=== PATIENT | male | born 1980 | race Caucasian/White ===

== ENCOUNTER 2020-05-26 07:37 | Emergency (ER) | payer BC, OTHER, SELFPAY ==
[2020-05-26 07:38] VITALS: BP 150/100; PULSE 88; RESP 17; TEMP 36.2; O2SAT 97; BMI 22.8
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
[2020-05-26] MEDS: HYDROcodone Bitartrate/Apap 5/325 Tablet PO (07:51)
== END 2020-05-26 09:23 | disposition home or self-care (01) ==
LOC: ED 08:32
PROVIDERS: Emergency Provider Emergency Medicine
DX: S83.519A Sprain of anterior cruciate ligament of unspecified knee, initial encounter (principal); S83.511A Sprain of anterior cruciate ligament of right knee, initial encounter; X50.1XXA Overexertion from prolonged static or awkward postures, initial encounter; Y93.89 Activity, other specified; Y92.89 Other specified places as the place of occurrence of the external cause; Y99.9 Unspecified external cause status
CPT/HCPCS: 73564; 99281

== ENCOUNTER → 2020-06-07 10:07 | Outpatient (CLI) | payer BC, OTHER, SELFPAY ==
[2020-05-26 07:38] VITALS: BMI 22.8
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
--- NOTE | 2020-06-07 10:45 | MRI_ITS ---
STUDY: MRI RIGHT KNEE REASON FOR EXAM: Male, 40 years old. Right knee pain. Injury. Nondisplaced proximal tibial fracture. TECHNIQUE: Standardized fat and water weighted pulse sequences were obtained in all 3 orthogonal planes. COMPARISON: X-ray dated May 26, 2020.. FINDINGS: Patient motion. Metallic susceptibility artifact (related to tibial aurelio) overlies the anterior medial soft tissues with obscuration of the portion of the proximal tibia. Subtle nondisplaced tibial eminence fracture (coronal image 20 series 9 and coronal image 12 series 8) with minimal extension into the medial tibial plateau. No acute fracture or depression. No acute fracture displacement. No acute bone destruction. Medial compartment grade 2/3 cartilage loss. Lateral compartment articular cartilage preserved. Patellofemoral articular cartilage preserved. Lateral femoral condyle 4 mm osteochondral lesion (sagittal image 12 series 4). Medial meniscal free edge degeneration without discrete articular surface tear. Lateral meniscus intact. Mild edema at the superficial fibers of the medial collateral ligament complex without tear. Large volume joint effusion. Moderate popliteal cyst. Moderate soft tissue swelling. Medial patellofemoral plica. Normal distal semimembranosus, gracilis and semitendinosus tendons. Normal proximal tibiofibular articulation. Normal lateral collateral (fibular) ligament. Normal popliteus tendon. Normal biceps femoris tendon. Normal anterior cruciate ligament (ACL). Normal posterior cruciate ligament (PCL). Normal medial and lateral patellar retinaculum. Normal quadriceps tendon. Normal patellar tendon. Normal Hoffa''s fat pad. MRI/Lower Ext Joint Only (Routine) IMPRESSION: Subtle nondisplaced tibial eminence fracture with minimal medial tibial extension Medial meniscal free edge degeneration/fraying Low-grade MCL sprain Medial compartment mild/moderate cartilage loss Large volume joint effusion, moderate size popliteal cyst and moderate soft tissue swelling Metallic susceptibility artifact secondary to tibial aurelio Electronically Signed: Zana De La Torre DO at 11:59 EDT Tel , Service support ,
== END ==
PROVIDERS: Referring Provider Physician Assistant; Visit Provider Physician Assistant
DX: S82.134A Nondisplaced fracture of medial condyle of right tibia, initial encounter for closed fracture (principal)
CPT/HCPCS: 70030; 73721

== ENCOUNTER → 2025-09-09 | Outpatient (CLI) | payer BC, SELFPAY | END | disposition home or self-care (01) | LOC: CT 17:32 | PROVIDERS: Referring Provider Surgery Plastic and Reconstructive Surgery; Visit Provider Surgery Plastic and Reconstructive Surgery | DX: R22.1 Localized swelling, mass and lump, neck (principal) | CPT/HCPCS: 70496; 70498; Q9967 ==

== ENCOUNTER → 2025-09-23 | Outpatient (CLI) | payer BC, SELFPAY ==
--- NOTE | 2025-09-23 16:34 | US_ITS ---
PROCEDURE: HEAD/NECK SOFT TISSUE 09/23/2025 REASON FOR EXAM: NECK AND FACE CYST Palpable lumps in the face and cervical region. TECHNIQUE: Procedure Code: USH/N SOFT Modality: US Procedure: HEAD/NECK SOFT TISSUE COMPARISON: None FINDINGS: There is a 2.5 cm x 2.7 cm x 1.4 cm complex cyst in the submandibular region. In the left submandibular region, there is a 1.3 cm 1.3 cm x 0.6 cm complex cyst. There is a 1.3 cm x 1.5 cm x 0.7 cm complex cyst in the right cervical region S. appearing complex cyst measuring 0.7 cm In compliance with [place] State Law Act 112, an automated letter has been sent to this patient notifying them that there are findings on this exam that warrant further discussion with their healthcare provider.. There is a 2.7 cm x 2.6 cm 1.5 cm complex cyst in the lower left neck. US/Head/Neck Soft Tissue IMPRESSION: Multiple palpable nodules were examined with ultrasound. These nodules are all complex cysts. Reading Location: [id number]
--- OUTSIDE RECORDS SUMMARY | 2025-09-23 16:53 | XMS RPT_ITS | CCD ---
Author Organization [facility] Care Team Providers Care Senior Administrative Support Name Role Phone Care Physician, No Primary Primary Care Physicia n Unavailable Care Physician, No Primary Referring Provider Un available Iman CH, Dr. Baker Attending Physician [phone] Dr. Samuel Valerio MD Referring Provider [phone] Care Physician, No Primary Primary Care Unava ilable Care Physician, No Primary Referring Unava ilable Iman, Samuel Attending Unavailable Samuel Valerio Referring Unavailable Care Physician, No Primary Primary Care Unava ilable Peggyka, Samuel Attending Unavailable Care Physician, No Primary Primary Care Unava ilable Peggyka, Samuel Attending Unavailable Care Physician, No Primary Primary Care Unava ilable Peggyka, Samuel Attending Unavailable SiskaSamuel Referring Unavailable Care Physician, No Primary Primary Care Unava ilable Care Physician, No Primary Referring Unava ilable Samuel Valerio Attending Unavailable Medications Current Medications Medication Drug Class(es) Dates Sig (Normalized) Sig (Original) Sharon (Nk) (1 source) Start: 08-26-2025 Sharon (Nk) A ctive August 26, 2025 12:00am Completed/Discontinued Medications Medication Drug Class(es) Dates Sig (Normalized) Sig (Original) acetaminophen 325 mg / HYDROcodone bitartrate 5 mg oral tablet (1 source) Opioid Agonist Start: 05-26-2020 End: 05-29-2020 Hydrocodone-Acetami nophen 1 TABLET tablet Discontinued 1 {tbl} PO EVERY 6 HOURS NEEDED as needed for Pain 10 3 0 May 26, 2020 May 28, 2020 12:00am May 29, 2020 12:02am Rupture of anterior cruciate ligament of knee Sprain of anterior cruciate ligament of unspecified knee, initial encounter Problems Problem Classification Problem Date Documented Da te Episodic/Chronic Other skin disorders (3 sources) Mass of neck; Translations: [Localized swelling, mass and lump, neck] 08-26-2025 Episodic Other skin disorders (2 sources) Localized swelling, mass and lump, neck; Translations: [Localized swelling, mass and lump, neck] Onset: 09-16-2025 Episodic Results Test Name Value Interpretation Reference Range Yisel mcneal Plastic Surgery Visit Report on 09-10-2025 Plastic Surgery Visit Report [facility] Plastic Reconstructive Surgery [address], [address] [place], [place] [id number] OFFICE VISIT Date of Service: 09/10/25 MR#: [id number] Acct: [id number] Name: CLAUDIO SHIELDS Rep #: [id number] : 1980 Provider: Dr. Samuel Valerio MD Age/Sex: 45/M Location: [facility] Status: Signed Intake Vital Signs 3 05/26/20 07:38 09/10/25 15:38 Height 5 ft 9 in 5 ft 9 in BP 139/89 H Blood Pressure Location Lt brachial Position Sitting Respiration 18 Pulse 80 Temp 97.4 F L Temp Source Oral Pulse Oximetry (%) 98 Oxygen Delivery Method room air Intake Visit Reasons: CT RESULTS Chief Complaint: ct results Is patient in pain?: No Allergies No Known Allergies Allergy (Verified 09/10/25 15:39) Medications 3 ???Medication ???Instructions ???Recorded ???Confirmed ???Type NK 08/26/25 09/10/25 History PFSH Social History (Updated 08/26/25 @ 15:52 by Deb Hector) Smoking Status: Never smoker Smokeless tobacco user: chewing tobacco HPI CT RESULTS Details: The patient is a 45-year-old male presenting with facial cysts. The cysts have been present for approximately two to three years, with the first cyst appearing and gradually increasing in number over time. The patient attempted to manage the initial cyst with drawing salve, which resulted in some drainage, but the other cysts have not drained. The patient denies any history of tooth abscesses or other dental issues, which lowers the suspicion for actinomycosis. He reports no significant medical history, including diabetes or kidney problems, and has no family history of bleeding or clotting disorders. The patient quit drinking alcohol two years ago and does not smoke cigarettes, although he uses chewing tobacco, which may affect wound healing. ROS: - Oral: Denies tooth abscesses or dental issues - Endocrine: Denies diabetes - Renal: Denies kidney problems - Hematologic: Denies history of bleeding or clotting disorders Attestation: Documentation on this patient encounter was supported using ambient scribe technology/ voice AI technology. The patient consented to recording for the purpose of documenting the encounter. Provider reviewed content of the generated note prior to signature. Current encounter, 10 September 2025: Reviewed CT scan with the patient. Lesions appeared cystic, but radiology recommended focused ultrasound (ordered). They appear superficial on my exam and I discussed with him that there are likely epidermal inclusion cyst Exam Details - Oral: No intraoral spread or tooth problems noted - Head and Neck: Multiple facial cysts noted, with concern for proximity to facial nerve He is able to purse his lower lip (marginal mandibular nerve intact) Four differences, 2 on the right and 2 on the left Coding Level of Care Code Off vis,est,level 2 Diagnoses Mass in neck R22.1 Assessment and Plan (No Qualifiers) Assessment and Plan (1) Mass in neck: Status: Acute Plan Assessment and Plan 45-year-old male with a history of facial cysts presenting for evaluation and management. The cysts have been present for two to three years, with gradual increase in number and size. The differential diagnosis includes epidermal inclusion cysts and actinomycosis, although the latter is less likely due to the absence of dental issues. The patient denies systemic health issues such as diabetes or kidney problems, and there is no family history of bleeding disorders. The use of chewing tobacco is noted, which may impact wound healing post-surgery. No personal or family history of bleeding or clotting problems 1. Epidermal Inclusion Cysts Consistent with CT scan Will obtain ultrasound per radiology recommendation I talked to the patient extensively about the risks of surgery, including bleeding, infection, damage to surrounding structures (we talked about damage to the facial nerve marginal mandibular branch), poor scaring, surgical site dehiscence and wound formation, need for wound care, need for repeat operations, failure to obtain the desired result, DVT/PE, and the risks of anesthesia including , including stroke (from low blood pressure/ischemia or clot). The benefits and alternatives of this surgery were also discussed. All of their questions were answered, and they agreed to proceed with surgery. Plan to schedule excision of the face/neck cysts with closure in the operating room under general anesthesia (LMA and local) Patient happy with plan 09/10/25 1605 Date [facility] Signature: Date (if applicable) CC: Normal [facility] CTA Head AND Neck W/ Contras ton 09-09-2025 CTA Head AND Neck W/ Contrast [facility] [address] [place] [address] CTA Head AND Neck W/ Contrast MR#: [id number] Acct: [id number] Name: CLAUDIO SHIELDS Rep #: [id number] : 1980 M 45 From: Nakul Estrella MD PCP: Care Physician,No Primary Status: REG CLI Study: CTA Head AND Neck W/ Contrast Date of Exam: Exam# [id number] Ordering Dr: Samuel Valerio MD PROCEDURE: CTA HEAD AND NECK W/ CONTRAST 09/09/2025 REASON FOR EXAM: MULTIPLE MASSES ON NECK AND FACE TECHNIQUE: Procedure Code: CTCTA.HDNCK Modality: CT Procedure: CTA HEAD AND NECK W/ CONTRAST Multiplanar Sagittal and Coronal images were obtained. One or more dose reduction techniques were used (e.g., Automated exposure control, adjustment of the mA and/or kV according to patient size, use of iterative reconstruction technique). FINDINGS: The ventricles are normal in size and midline in position. No evidence of acute hemorrhage or infarction. Left anterior triangle superficial 3.0 x 2.1 cm circumscribed lesion with Hounsfield attenuation of 1. There are additional smaller lesions within the bilateral buccal regions with similar Hounsfield attenuation. The paranasal sinuses are clear. The intracranial contents are unremarkable. The bilateral parotid and submandibular glands are unremarkable. The lung apices are clear. No acute osseous abnormalities. CT/CTA Head AND Neck W/ Contrast IMPRESSION: Multiple well-circumscribed low-attenuation lesions within the left anterior triangle and bilateral buccal regions, largest measuring 3.0 x 2.1 cm, with attenuation consistent with fluid or cystic content. Findings may represent benign cystic lesions such as lymphatic malformations or branchial cleft cysts. No evidence of acute intracranial abnormality, hemorrhage, or infarction. Parotid and submandibular glands are normal. Paranasal sinuses and lung apices are clear. No acute osseous abnormality. Recommend correlation with clinical findings and possible dedicated ultrasound for further characterization. Reading Location: [address] CC: Dr. Samuel Valerio MD; No Primary Care Physician Music Instructor: Signed Normal [facility] Plastic Surgery Visit Report on 08-26-2025 Plastic Surgery Visit Report [facility] Plastic Reconstructive Surgery [address], [address] [place] [address] OFFICE VISIT Date of Service: 08/26/25 MR#: [id number] Acct: [id number] Name: CLAUDIO SHIELDS Rep #: [id number] : 1980 Provider: Dr. Samuel Valerio MD Age/Sex: 45/M Location: [facility] Status: Signed Intake Vital Signs 3 08/26/25 15:53 BP 145/88 H Blood Pressure Location Rt brachial Position Sitting Respiration 18 Pulse 74 Pulse Source Monitor Pulse Oximetry (%) 98 Oxygen Delivery Method room air Intake Visit Reasons: CYSTS Chief Complaint: cysts Is patient in pain?: No Allergies No Known Allergies Allergy (Verified 08/26/25 15:53) Medications 3 ???Medication ???Instructions ???Recorded ???Confirmed ???Type NK 08/26/25 08/26/25 History PFSH Social History (Updated 08/26/25 @ 15:52 by Deb Hector) Smoking Status: Never smoker Smokeless tobacco user: chewing tobacco HPI CYSTS Details: The patient is a 45-year-old male presenting with facial cysts. The cysts have been present for approximately two to three years, with the first cyst appearing and gradually increasing in number over time. The patient attempted to manage the initial cyst with drawing salve, which resulted in some drainage, but the other cysts have not drained. The patient denies any history of tooth abscesses or other dental issues, which lowers the suspicion for actinomycosis. He reports no significant medical history, including diabetes or kidney problems, and has no family history of bleeding or clotting disorders. The patient quit drinking alcohol two years ago and does not smoke cigarettes, although he uses chewing tobacco, which may affect wound healing. ROS: - Oral: Denies tooth abscesses or dental issues - Endocrine: Denies diabetes - Renal: Denies kidney problems - Hematologic: Denies history of bleeding or clotting disorders Attestation: Documentation on this patient encounter was supported using ambient scribe technology/ voice AI technology. The patient consented to recording for the purpose of documenting the encounter. Provider reviewed content of the generated note prior to signature. ROS General General: Yes good health; No fatigue, fever(s) or weight loss HENMT HENMT: No rhinitis, sore throat/mouth sore, nasal congestion, contacts or glaucoma Endo Endocrine: No thyroid disease, polydipsia, heat intolerance, cold intolerance, hepatitis or excessive urine Skin Skin: No Bleeding, bruising, changing moles or suspicious lesion Musc Musculoskeletal: No joint pain, joint stiffness, muscle weakness, back pain, osteoarthritis or Muscle aches/ myalgia Neuro Neurological: No headache(s), No lightheadedness and No numbness Cardio Cardiovascular: No chest pain, pacemaker, fatigue or shortness of breat with exertion Psych Psychiatric: No depression, claustrophobia or anxiety Resp Respiratory: No spitting up, shortness of breath, sleep apnea, asthma, emphysema, TB, Cough or Smoker Gastro Gastrointestinal: No diarrhea, constipation, blood in stool, nausea, vomiting or abdominal bloating Matty Hematologic: No anemia, No bleeding and No abnormal bleeding Genitourinary: No urinary frequency, blood in urine or incontinence Exam Details - Oral: No intraoral spread or tooth problems noted - Head and Neck: Multiple facial cysts noted, with concern for proximity to facial nerve Coding Level of Care Code Off vis,new,level 3 Diagnoses Mass in neck R22.1 Assessment and Plan (No Qualifiers) Assessment and Plan (1) Mass in neck: Status: Acute Plan Assessment and Plan 45-year-old male with a history of facial cysts presenting for evaluation and management. The cysts have been present for two to three years, with gradual increase in number and size. The differential diagnosis includes epidermal inclusion cysts and actinomycosis, although the latter is less likely due to the absence of dental issues. The patient denies systemic health issues such as diabetes or kidney problems, and there is no family history of bleeding disorders. The use of chewing tobacco is noted, which may impact wound healing post-surgery. 1. Epidermal Inclusion Cysts The plan includes obtaining imaging, specifically a CT scan with contrast, to assess the cysts' origin and proximity to the facial nerve. Surgical removal of the cysts is planned, with consideration for operating room setting to monitor the facial nerve closely. The patient is advised about the potential impact of chewing tobacco on wound healing. - Schedule a CT scan with contrast as soon as possible. - Avoid using chewing tobacco to promote better wound healing post-surgery. - Follow up with the surgeon after the scan to discuss results and p (more content not included)... Normal [facility] Vital Signs Date Time Vital Sign Value Performing Clinician Coy antonio 09-10-2025 15:38-0400 Body height 175.26 cm No Primary Care Physician [facility] 09-10-2025 15:38-0400 Body temperature 97.4 [degF] No Primary Care Physician [facility] 09-10-2025 15:38-0400 Diastolic blood pressure 89 mm[Hg] No Primary Care Physician [facility] 09-10-2025 15:38-0400 Heart rate 80 /min No Primary Care Physician [facility] 09-10-2025 15:38-0400 Respiratory rate 18 /min No Primary Care Physician [facility] 09-10-2025 15:38-0400 SaO2% (BldA) [Mass fraction] 98 % No Primary Care Physician [facility] 09-10-2025 15:38-0400 Systolic blood pressure 139 mm[Hg] No Primary Care Physician [facility] 08-26-2025 15:53-0400 Diastolic blood pressure 88 mm[Hg] No Primary Care Physician [facility] 08-26-2025 15:53-0400 Heart rate 74 /min No Primary Care Physician [facility] 08-26-2025 15:53-0400 Respiratory rate 18 /min No Primary Care Physician [facility] 08-26-2025 15:53-0400 SaO2% (BldA) [Mass fraction] 98 % No Primary Care Physician [facility] 08-26-2025 15:53-0400 Systolic blood pressure 145 mm[Hg] No Primary Care Physician [facility] Encounters Encounter Date Encounter Type Care Provider Facility Start: 10-08-2025 ambulatory No Primary Car e Physician Facility:[facility] Start: 09-23-2025 ambulatory No Primary Car e Physician Facility:[facility] Start: 09-10-2025 End: 09-10-2025 ambulatory No Primary Care Physician Facility:[facility] Start: 09-09-2025 End: 09-09-2025 ambulatory Samuel Valerio Facility:[facility] Start: 08-26-2025 End: 08-26-[address] Samuel Valerio MD [facility] Work Phone: Start: 08-26-2025 End: 08-26-2025 ambulatory No Primary Care Physician -[facility] Plan of Treatment Date Care Activity Detail Author Start: 09-10-2025 End: 09-10-2025 Patient encounter procedure Mass in neck -[facility] Work Phone: Start: 09-09-2025 CT angiography of he ad and neck CTA Head AND Neck W/ Contrast [facility] Start: 09-09-2025 Patient encounter procedure Registered Clinical -Cat Scan [facility] Work Phone: [place] Thyroid gland [facility] Payers Date Payer Category Payer Self-pay 2025 Unknown [id number] 2025 Unknown [id number] Unknown [id number] . [id number] Unknown [id number] . [id number] Unknown [id number] . [id number] Unknown [id number] Unknown [id number] . [id number] Social History Date Type Detail Facility Start: 08-26-2025 Tobacco smoking stat us PAIS Never smoked tobacco (finding) [facility] Sex Male [facility] Start: 1980 Sex Assigned At Male [facility] Progress note 08-26-2025 Note Date & Type Note Facility 08-26-2025 Progress note [facility] Progress note 08-26-2025 Note Date & Type Note Facility 08-26-2025 Progress note Note Date/Time August 26, 2025 3:59pm [facility] [address], [address] [place] [address] OFFICE VISIT Date of Service: 08/26/25 MR#: [id number] Acct: [id number] Name: CLAUDIO SHIELDS Rep #: [id number] : 1980 Provider: Dr. Dixon Valerio MD Age/Sex: 45/M Location: [facility] Status: Signed Intake Vital Signs 3 08/26/25 15:53 BP 145/88 H Blood Pressure Location Rt brachial Position Sitting Respiration 18 Pulse 74 Pulse Source Monitor Pulse Oximetry (%) 98 Oxygen Delivery Method room air Intake Visit Reasons: CYSTS Chief Complaint: cysts Is patient in pain?: No Allergies No Known Allergies Allergy (Verified 08/26/25 15:53) Medications 3 ?Medication ?Instructions ?Recorded ?Confirmed ?Type NK 08/26/25 08/26/25 [facility] Social History (Updated 08/26/25 @ 15:52 by Deb Hector) Smoking Status: Never smoker Smokeless tobacco user: chewing tobacco HPI CYSTS Details: The patient is a 45-year-old male presenting with facial cysts. The cysts have been present for approximately two to three years, with the first cyst appearingand gradually increasing in number over time. The patient attempted to manage the initial cyst with drawing salve, which resulted in some drainage, but the other cysts have not drained. The patient denies any history of tooth abscesses or other dental issues, which lowers the suspicion for actinomycosis. He reports no significant medical history, including diabetes or kidney problems, and has no family history of bleeding or clotting disorders. The patient quit drinking alcohol two years ago and does not smoke cigarettes, although he uses chewing tobacco, which may affect wound healing. ROS: - Oral: Denies tooth abscesses or dental issues - Endocrine: Denies diabetes - Renal: Denies kidney problems - Hematologic: Denies history of bleeding or clotting disorders Attestation: Documentation on this patient encounter was supported using ambient scribe technology/ voice AI technology. The patient consented to recording for the purpose of documenting the encounter. Provider reviewed content of the generatednote prior to signature. ROS General General: Yes good health; No fatigue, fever(s) or weight loss HENMT HENMT: No rhinitis, sore throat/mouth sore, nasal congestion, contacts or glaucoma Endo Endocrine: No thyroid disease, polydipsia, heat intolerance, cold intolerance, hepatitis or excessive urine Skin Skin: No Bleeding, bruising, changing moles or suspicious lesion Musc Musculoskeletal: No joint pain, joint stiffness, muscle weakness, back pain, osteoarthritis or Muscle aches/ myalgia Neuro Neurological: No headache(s), No lightheadedness and No numbness Cardio Cardiovascular: No chest pain, pacemaker, fatigue or shortness of breat with exertion Psych Psychiatric: No depression, claustrophobia or anxiety Resp Respiratory: No spitting up, shortness of breath, sleep apnea, asthma, emphysema, TB, Cough or Smoker Gastro Gastrointestinal: No diarrhea, constipation, blood in stool, nausea, vomiting orabdominal bloating Matty Hematologic: No anemia, No bleeding and No abnormal bleeding Genitourinary: No urinary frequency, blood in urine or incontinence Exam Details - Oral: No intraoral spread or tooth problems noted - Head and Neck: Multiple facial cysts noted, with concern for proximity to facial nerve Coding Level of Care Code Off vis,new,level 3 Diagnoses Mass in neck R22.1 Assessment and Plan (No Qualifiers) Assessment and Plan (1) Mass in neck: Status: Acute Plan Assessment and Plan 45-year-old male with a history of facial cysts presenting for evaluation and management. The cysts have been present for two to three years, with gradual increase in number and size. The differential diagnosis includes epidermal inclusion cysts and actinomycosis, although the latter is less likely due to theabsence of dental issues. The patient denies systemic health issues such as diabetes or kidney problems, and there is no family history of bleeding disorders. The use of chewing tobaccois noted, which may impact wound healing post-surgery. 1. Epidermal Inclusion Cysts The plan includes obtaining imaging, specifically a CT scan with contrast, to assess the cysts' origin and proximity to the facial nerve. Surgical removal of the cysts is planned, with consideration for operating room setting to monitor the facial nerve closely. The patient is advised about the potential impact of chewing tobacco on wound healing. - Schedule a CT scan with contrast as soon as possible. - Avoid using chewing tobacco to promote better wound healing post-surgery. - Follow up with the surgeon after the scan to discuss results and plan for surgery. 08/27/25 1701 <Electronically signed by Sameul Valerio MD> Date _ Samuel Valerio MD Cosigner Signature: Date (if applicable) CC: ~ [facility] Work Phone: Evaluation note Note Date & Type Note Facility Evaluation note Diagnosis Onset Date Resolution Mass in neck acute August 26, 2025 3:31pm Mass in neck acute August 3:33pm [facility] Work Phone: Reason for referral (narrative) Note Date & Type Note Facility Reason for referral (narrative) No reason for referral information available [facility] Work Phone: Chief Complaint and Reason for Visit Chief Complaint Admit Date CYSTS August 26, 2025 3: 31pm R22.1 Localized swelling, mass and lump, neck September 09, 2025 5:31pm CT RESULTS September 10, 2025 3 :33pm Reason for Visit Admit Date Mass in neck August 26, 2025 3: 31pm Mass in neck September 10, 2025 3 :33pm Summary Purpose Family History No Family History Records Found Advance Directives No Advanced Directives Records Found Additional Source Comments Care Teams (unrecognized sec tion and content) Team Status: Active Member Role/Relationship Status Dates No Primary Care Physician Primary care physician Activ e Team Status: Inactive Member Role/Relationship Status Dates No Primary Care Physician Primary care physician Activ e Start: August 26, 2025 End: August 26, 2025 No Primary Care Physician Referring Provider Active Start: August 26, 2025 End: August 26, 2025 Dr. Samuel Valerio MD Attending physician Active Start: August 26, 2025 End: August 26, 2025 Team Status: Active Member Role/Relationship Status Dates No Primary Care Physician Primary care physician Activ e Start: September 09, 2025 Dr. Samuel Valerio MD Attending physician Active Start: September 09, 2025 Dr. Samuel Valerio MD Referring Provider Active Start: September 09, 2025 Team Status: Inactive Member Role/Relationship Status Dates No Primary Care Physician Primary care physician Activ e Start: September 10, 2025 End: September 10, 2025 No Primary Care Physician Referring Provider Active Start: September 10, 2025 End: September 10, 2025 Dr. Samuel Valerio MD Attending physician Active Start: September 10, 2025 End: September 10, 2025 Goals (unrecognized section and content) Goals may be documented in a n alternate section (unrecognized sect ion and content) No Status Records Found INFORMATION SOURCE (unrecogn ized section and content) DATE CREATED AUTHOR 09/22/2025 [facility] FOR RECORDS PERTAINING TO PATIENTS WHO ARE OR HAVE BEEN ENROLLED IN A CHEMICAL DEPENDENCY/SUBSTANCEABUSE PROGRAM, SOME INFORMATION MAY BE OMITTED. This clinical summary was aggregated from multiple sources. Caution should be exercised in using it in the provision of clinical care. This summary normalizes information from multiple sources, and as a consequence, information in this document may materially change the coding, format and clinical context of patient data. In addition, data may be omitted in some cases. CLINICAL DECISIONS SHOULD BE BASED ON THE PRIMARY CLINICAL RECORDS. [employer] provides no warranty or guarantee of the accuracy or completeness of information in this document.
== END | disposition home or self-care (01) ==
LOC: US 16:32
PROVIDERS: Referring Provider Surgery Plastic and Reconstructive Surgery; Visit Provider Surgery Plastic and Reconstructive Surgery
DX: R22.1 Localized swelling, mass and lump, neck (principal)
CPT/HCPCS: 76536

== ENCOUNTER 2025-10-08 06:27 | Day surgery (SDC) | payer BC, OTHER, SELFPAY ==
[2025-10-08] VITALS (8 sets, daily range): BP systolic 124–131; BP diastolic 88–97; PULSE 63–73; RESP 12–16; TEMP 36.3–36.9; O2SAT 100; BMI 21.7
--- NOTE | 2025-10-08 06:35 | PRE.ANES_ITS ---
ASA Classification* ASA Classification ASA Classification: 2 Assessment & Plan Anesthesia* Anesthesia Assessment Anesthesia Assessment: Discussed sedation and/or anesthesia options, risks, benefits, and alternatives with patient/parents/legal guardian/POA. Questions invited. The patient/parents/legal guardian/POA seems to understand and agrees to proceed with anesthesia plan. Reviewed the physical assessment, medical history, allergy history and patient home medications list prior to surgery/procedure/anesthetic and documented any changes. Performed airway and anesthesia risk assessments. Anesthesia Type Anesthesia Type: General Anesthesia Focused Assessment* Airway Assessment Mouth opens: >3 cm Mallampati Score: II Labs Anesthesia Preop lab: CBC CHEMISTRY COAG Pre-Assessment Diagnosis/Proposed Procedure Planned Operative Procedure(s): EXCISION OF CYST ON NECK FACE BILAT X4 Anesthesia History Anesthesia History - human resources officer: Anesthesia History - human resources officer Hx Hospitalization No 10/01/25 14:45 Any Problems With Anesthesia No 10/01/25 14:45 Cholinesterase deficiency No 10/01/25 14:45 You/Your Family Experience No 10/01/25 14:45 fever (hyperthermia) with Relationship Recent Exposure to Contagious Disease Does patient have nerve No 10/01/25 14:45 stimulator Patient instructed to have device shut off --Does patient have Pacemaker or ICD? When Was Last Pacemaker Check QUESTION #4 FULL TEXT: You/Your Family Experience fever (hyperthermia) with Anesthesia Last Oral Intake Last Oral intake: Last Oral Intake NPO since Meds taken in AM with sips of water? Meds patient instructed to take am of surgery PONV PONV - human resources officer: PONV - human resources officer Female No 10/01/25 14:45 HX of Motion Sickness No 10/01/25 14:45 HX of N/V After Surgery No 10/01/25 14:45 Non-Smoker No 10/01/25 14:45 Duration of Surgery greater No 10/01/25 14:45 than 60 minutes Number of Risk Factors PONV Score Height & Weight Height & Weight: Anesthesia: Height & Weight Height 5 ft 9 in 09/10/25 15:38 Respiratory Assessment Respiratory Assessment - human resources officer: Respiratory Tract Infection Hx - human resources officer Hx Respiratory Tract Infection No 10/01/25 14:45 STOP Sleep Apnea STOP Sleep Apnea - human resources officer: STOP Sleep Apnea - human resources officer Hx Hypertension No 10/01/25 14:45 Hx Sleep Apnea No 10/01/25 14:45 CPAP BIPAP Do you snore loudly (louder No 10/01/25 14:45 than talking or can be heard Do you often feel tired/ No 10/01/25 14:45 fatigued/ sleepy during daytime? Has anyone observed you stop No 10/01/25 14:45 breathing during sleep? STOP Results Negative 10/01/25 14:45 QUESTION #5 FULL TEXT : Do you snore loudly (louder than talking or can be heard through closed doors)? Tobacco Use History Tobacco Use History - human resources officer: Tobacco Use History - human resources officer Tobacco Use Smoking Status Current every day smoker 10/01/25 14:45 Hx Tobacco Use Yes 10/01/25 14:45 Years Smoking Packs Smoked per Day Smoking Cessation Date was within the last 15 years Hx Smoking Cessation Date Hx Smoking Cessation Counseling Hematologic Medial History Hematologic Hx - human resources officer: Hematologic Medical Hx - documentation billing clerk Hx of Blood Transfusion No 10/01/25 14:45 Hx of Transfusion in last 3 No 10/01/25 14:45 Months Date of Last Transfusion (if within last 3 months) Ever experience any problems No 10/01/25 14:45 with transfusion(s)? Specify any problems Hx of Preganancy in last 3 N/A 10/01/25 14:45 Months Nurse Filling Out Transfusion DSCHRIBER 10/01/25 14:45 & Questions: Date: 10/01/25 10/01/25 14:45 Time: 14:46 10/01/25 14:45 Patient unable to answer at this time (ie. confused, unrespo /Reproduction History /Reproductive History - human resources officer: /Reproductive Hx- human resources officer Hx Now No 10/01/25 14:45 Gestational Age (in weeks): EDC: Hx Hx Para Hx Section SAB No 10/01/25 14:45 Does the father of the baby or his family experience fever w Father of the baby Malignant Hypertension history comment Active Medications Active Medications: Current Medications Generic Name Dose Route Start Last Admin Trade Name Freq PRN Reason Stop Dose Admin Cefazolin Sodium 2 gm/ Sodium 110 mls @ 200 mls/hr 10/08/25 07:00 Chloride IV 10/08/25 07:32 INTRAOP [facility] Medical History Chewing tobacco dependence Hx of fracture of leg Home Medications ?Medication ?Instructions ?Recorded ?Last Taken ?Type NK 08/26/25 Unknown History Allergy/AdvReac Type Severity Reaction Status Date / Time No Known Allergies Allergy Verified 10/01/25 14:44 Social History Smoking Status: Current every day smoker tobacco type: smokeless tobacco Smokeless tobacco user: chewing tobacco Review of Systems (Anesthesia) ROS Narrative System reviewed and no additional complaints, except as documented.
--- OUTSIDE RECORDS SUMMARY | 2025-10-08 06:37 | XMS RPT_ITS | CCD ---
Author Organization [facility] Care Team Providers Care Patient Care Director Name Role Phone Care Physician, No Primary Primary Care Physicia n Unavailable Care Physician, No Primary Referring Provider Un available Iman CH, Dr. Baker Attending Physician [phone] Samuel Valerio MD Referring Provider [phone] Care Physician, No Primary Primary Care Unava ilable Care Physician, No Primary Referring Unava ilable Samuel Valerio Attending Unavailable SisSamuel cisneros Referring Unavailable Care Physician, No Primary Primary Care Unava ilable Peggyka, Samuel Attending Unavailable Care Physician, No Primary Primary Care Unava ilable Iman, Samuel Attending Unavailable Care Physician, No Primary Primary Care Unava ilable Iman, Samuel Attending Unavailable Sisamelia, Samuel Referring Unavailable Care Physician, No Primary Primary Care Unava ilable Care Physician, No Primary Referring Unava ilable Samuel Valerio Attending Unavailable Medications Current Medications Medication Drug Class(es) Dates Sig (Normalized) Sig (Original) Bonham (Nk) (1 source) Start: 08-26-2025 Bonham (Nk) A ctive August 26, 2025 12:00am [...] [Localized swelling, mass and lump, neck] Onset: 09-20-2025 Episodic Results Test Name Value Interpretation Reference Range Facil ity Head/Neck Soft Tissueon Head/Neck Soft Tissue [facility] [address] [place], [place] [address] Head/Neck Soft Tissue MR#: [id number] Acct: [id number] Name: CLAUDIO SHIELDS Rep #: [id number] : 1980 M 45 From: Hermes moura MD PCP: Care Physician,No Primary Status: REG CLI Study: Head/Neck Soft Tissue Date of Exam: 09/23/25 Exam# [id number] Ordering Dr: Samuel Valerio MD PROCEDURE: HEAD/NECK SOFT TISSUE 09/23/2025 REASON FOR EXAM: NECK AND FACE CYST Palpable lumps in the face and cervical region. TECHNIQUE: Procedure Code: USH/N SOFT Modality: US Procedure: HEAD/NECK SOFT TISSUE COMPARISON: None FINDINGS: There is a 2.5 cm x 2.7 cm x 1.4 cm complex cyst in the submandibular region. In the left submandibular region, there is a 1.3 cm 1.3 cm x 0.6 cm complex cyst. There is a 1.3 cm x 1.5 cm x 0.7 cm complex cyst in the right cervical region S. appearing complex cyst measuring 0.7 cm In compliance with [place] State Law Act 112, an automated letter has been sent to this patient notifying them that there are findings on this exam that warrant further discussion with their healthcare provider.. There is a 2.7 cm x 2.6 cm 1.5 cm complex cyst in the lower left neck. US/Head/Neck Soft Tissue IMPRESSION: Multiple palpable nodules were examined with ultrasound. These nodules are all complex cysts. Reading Location: [id number] CC: Dr. Samuel Valerio MD; No Primary Care Physician Icing Machine Operator: Signed Normal [facility] Plastic Surgery Visit Report on 09-10-2025 Plastic Surgery Visit Report [facility] [address], [address] [place] [address] OFFICE VISIT Date of Service: 09/10/25 MR#: [id number] Acct: [id number] Name: CLAUDIO SHIELDS Rep #: [id number] : 1980 Provider: Dr. Samuel Valerio MD Age/Sex: 45/M Location: [facility] Status: Signed Intake Vital Signs 3 05/26/20 [...] and local) Patient happy with plan 09/10/25 4175 Date Samuel Valerio MD Cosigner Signature: Date (if applicable) CC: Normal [facility] CTA Head AND Neck W/ Contras ton 09-09-2025 CTA Head AND Neck W/ Contrast [facility] [address] [place] [address] CTA Head AND Neck W/ Contrast MR#: [id number] Acct: [id number] Name: CLAUDIO SHIELDS Rep #: [id number] : 1980 M 45 From: Nakul Estrella MD PCP: Care Physician,No Primary Status: REG CLI Study: CTA Head AND Neck W/ Contrast Date of Exam: Exam# [id number] Ordering Dr: Samuel Valerio MD PROCEDURE: CTA [...] dedicated ultrasound for further characterization. Reading Location: [address] CC: Dr. Samuel Valerio MD; No Primary Care Physician Icing Machine Operator: Signed [facility] Plastic Surgery Visit Report on 08-26-2025 Plastic Surgery Visit Report [facility] [address] [place] [address] OFFICE VISIT Date of Service: 08/26/25 MR#: [id number] Acct: [id number] Name: CLAUDIO SHIELDS Rep #: [id number] : 1980 Provider: Dr. Samuel Valerio MD Age/Sex: 45/M Location: [facility] Status: Signed Intake Vital Signs 3 [...] and p (more content not included)... [facility] Vital Signs Date Time Vital Sign Value Performing Clinician Ailyni lity 09-10-2025 15:38-0400 Body height 175.26 cm No Primary Care Physician [facility] 09-10-2025 15:38-0400 Body temperature 97.4 [degF] No Primary Care Physician [facility] 09-10-2025 15:38-0400 Diastolic blood pressure 89 mm[Hg] No Primary Care Physician [facility] 09-10-2025 15:38-0400 Heart rate 80 /min No Primary Care Physician [facility] 09-10-2025 15:38-0400 Respiratory rate 18 /min No Primary Care Physician [facility] 09-10-2025 15:38-0400 SaO2% (BldA) [Mass fraction] 98 % No Primary Care Physician [facility] 09-10-2025 15:38-0400 Systolic blood pressure 139 mm[Hg] No Primary Care Physician [facility] 08-26-2025 15:53-0400 Diastolic blood pressure 88 mm[Hg] No Primary Care Physician [facility] 08-26-2025 15:53-0400 Heart rate 74 /min No Primary Care Physician [facility] 08-26-2025 15:53-0400 Respiratory rate 18 /min No Primary Care Physician [facility] 08-26-2025 15:53-0400 SaO2% (BldA) [Mass fraction] 98 % No Primary Care Physician [facility] 08-26-2025 15:53-0400 Systolic blood pressure 145 mm[Hg] No Primary Care Physician [facility] Encounters Encounter Date Encounter Type Care Provider Facility Start: 10-08-2025 ambulatory No Primary Car e Physician Facility:[facility] Start: 09-23-2025 ambulatory No Primary Car e Physician Facility:[facility] Start: 09-10-2025 End: 09-10-2025 ambulatory No Primary Care Physician Facility:[facility] Start: 09-09-2025 End: 09-09-2025 ambulatory Samuel Valerio Facility:[facility] Start: 08-26-2025 End: 08-26-[address] Samuel Valerio MD -[facility] Work Phone: Start: 08-26-2025 End: 08-26-2025 ambulatory No Primary Care Physician -[facility] Plan of Treatment Date Care Activity Detail Author Start: 09-10-2025 End: 09-10-2025 Patient encounter procedure Mass in neck -[facility] Work Phone: Start: 09-09-2025 CT angiography of he ad and neck CTA Head AND Neck W/ Contrast [facility] Start: 09-09-2025 Patient encounter procedure Registered Clinical -Cat Scan [facility] Work Phone: Thyroid gland [facility] Payers Date Payer Category Payer Self-pay 2025 Unknown [id number] 2025 Unknown [id number] Unknown [id number] [id number] [id number] Unknown [id number] 2.16.8 [id number] Unknown [id number] 2.16.8 [id number] Unknown [id number] 2.16.8 [id number] Unknown [id number] 2.16.8 [id number] Social History Date Type Detail Facility Start: 08-26-2025 Tobacco smoking stat us NHIS Never smoked tobacco (finding) [facility] Sex Male [facility] Start: 1980 Sex Assigned At Male [facility] Progress note 08-26-2025 Note Date & Type Note Facility 08-26-2025 Progress note [facility] Progress note 08-26-2025 Note Date & Type Note Facility 08-26-2025 Progress note Note Date/Time August 26, 2025 3:59pm [facility] [address], [address] [place] [address] OFFICE VISIT Date of Service: 08/26/25 MR#: [id number] Acct: [id number] Name: CLAUDIO SHIELDS Rep #: [id number] : 1980 Provider: Dr. Dixon Valerio MD Age/Sex: 45/M Location: [facility] Status: Signed Intake Vital Signs 3 08/26/25 [...] ?Recorded ?Confirmed ?Type NK 08/26/25 08/26/25 History COUNTS INCLUDE 234 BEDS AT THE [facility] Social History (Updated 08/26/25 @ 15:52 by [...] discuss results and plan for surgery. 08/27/25 7001 <Electronically signed by Samuel Valerio MD> Date _ Samuel Valerio MD Cosigner Signature: Date (if applicable) CC: ~ [facility] Work Phone: Evaluation note Note Date & Type Note Facility Evaluation note Diagnosis Onset Date Resolution Mass in neck acute August 26, 2025 3:31pm Mass in neck acute August 3:33pm [facility] Work Phone: Reason for referral (narrative) Note Date & Type Note Facility Reason for referral (narrative) No reason for referral information available [facility] Work Phone: Chief Complaint and Reason for [...] ized section and content) DATE CREATED AUTHOR 09/28/2025 [facility] FOR RECORDS PERTAINING TO PATIENTS WHO [...] BE BASED ON THE PRIMARY CLINICAL RECORDS. [employer] [facility]. provides no warranty or guarantee of the accuracy or completeness of information in this document.
[2025-10-08] MEDS: Lactated Ringers 1,000 ML 15 ML IV (06:45)
--- NOTE | 2025-10-08 08:00 | MASS_PTH ---
PATIENT: CLAUDIO SHIELDS LOC: [facility] U#:[id number] AGE/SX: 45/M ROOM: RE10/08/[address]: Dr. Samuel Valerio MD : 1980 BED: DIS: 10/08/2025 SPEC #: [id number] RECD: 10/08/25 10:35 STATUS: EDSON ILA #: [id number] ANGELLA: 10/08/25 08:[address]: Samuel Valerio DEPT: SURGICAL PATHOLOGY RECD BY: Ez Choudhury ENTERED: 10/08/25 13:51 SP TYPE: Mass OTHR DR: No Primary Care Phys Tissues: A - Face, NOS B - Neck, NOS C - Neck, NOS D - Neck, NOS Procedures: Surgery Specimen Level IV HEADER OPERATION: Excision of cysts in neck and face x 5 PRE-OP DIAGNOSIS: Mass in neck, face and neck cysts TISSUE SUBMITTED: A- Right face mass, B- Right neck cysts x2, C- Left neck mass, D- Left neck cyst MICROSCOPIC DIAGNOSIS A. Soft tissue, face, right, excision: * Epidermal inclusion cyst B. Soft tissue, neck, right, excision: * Epidermal inclusion cyst C. Soft tissue, neck, left, excision: * Epidermal inclusion cyst D. Soft tissue, neck, left, excision: * Epidermal inclusion cyst MICROSCOPIC DESCRIPTION Slides are reviewed. GROSS DESCRIPTION Received in 4 formalin containers labeled with the patient's name and date of . Designated as: A. Right face mass is a 1.9 x 1.6 x 1.1 cm herrera-white, soft and focally disrupted cyst expelling white sebaceous like material; there is an attached, 1.4 x 0.3 cm portion of herrera skin, devoid of orientation. Belly Dump Driver sections are submitted in 1 cassette. B. Right neck cyst x 2 is a 1.8 x 1.1 x 0.8 cm white disrupted cyst containing white sebaceous like material and a 0.8 x 0.5 x 0.4 cm white, intact cyst also containing white sebaceous like material. The smaller cyst in its entirety, and fundraising sale representative sections of the larger cyst are submitted in 1 cassette. C. Left neck mass is a 1.4 x 1.1 x 0.7 cm white, iridescent intact cyst containing herrera to white, sebaceous like material. Belly Dump Driver sections are submitted in 1 cassette. D. Left neck cyst is a 2.8 x 2.4 x 1.4 cm white, iridescent intact cyst containing herrera to white, sebaceous like material. Belly Dump Driver sections are submitted in 2 cassettes. [place] 5CPT:[id number]
--- NOTE | 2025-10-08 08:12 | PCM.HP.STD ---
HPI - General HPI Narrative CLAUDIO SHIELDS, is a 45 M who presents with multiple neck cysts and face cysts (5) they were marked with the patient in preop and he was in agreement. Current Encounter (DATE OF SURGERY H&P UPDATE): I saw and examined the patient this morning in pre-operative holding. We discussed risks and benefits of today's surgery and they would like to proceed. NO CHANGE in health history since last seen and evaluated. Ready to proceed with surgery. [facility] Medical History Chewing tobacco dependence Hx of fracture of leg Home Medications ?Medication ?Instructions ?Recorded ?Last Taken ?Type NK 08/26/25 Unknown History Allergy/AdvReac Type Severity Reaction Status Date / Time No Known Allergies Allergy Verified 10/08/25 06:57 Social History Smoking Status: Current every day smoker tobacco type: smokeless tobacco Smokeless tobacco user: chewing tobacco Vital Signs Vital Signs Vital Signs: 10/08/25 06:57 10/08/25 06:57 10/08/25 07:00 Temperature 98.4 F Temperature Source Temporal Pulse Rate 63 Respiratory Rate 14 Respiratory Pattern Normal Blood Pressure 124/93 H Blood Pressure Mean 103 Blood Pressure Source Monitor Blood Pressure Position Sitting Blood Pressure Location Left Arm Baseline BP 124/93 Pulse Ox 100 Oxygen Delivery Method Room Air Weight Weight: 147 lb 7.828 oz Body Mass Index (BMI) 21.7 Physical Exam Narrative 3 neck cysts and 2 face cysts marked Assessment & Plan Assessment/Plan (1) Mass in neck: (2) Mass of face: PLAN: Plan I talked to the patient extensively about the risks of surgery, including bleeding, infection, damage to surrounding structures, poor scaring, surgical site dehiscence and wound formation, need for wound care, need for repeat operations, failure to obtain the desired result, DVT/PE, and the risks of anesthesia including , including stroke (from low blood pressure/ischemia or clot). The benefits and alternatives of this surgery were also discussed. All of their questions were answered, and they agreed to proceed with surgery. Especially discussed facial nerve injury risks (marginal mandibular nerve injury in this location) and patient elected to proceed. INTERVAL H&P PLAN, DATE OF SURGERY: We will proceed with surgery today.
[2025-10-08] MEDS: Midazolam 2 MG/2 ML Syringe IV (08:15)
[2025-10-08] MEDS: Lidocaine 1% (5 ml sdv) 5 ML Vial IV (08:20)
[2025-10-08] MEDS: Cefazolin 1 GM/5 ML Vial 2 GM IV (08:20)
[2025-10-08] MEDS: Bupiv/Epi 0.25% 30 ML Vial (08:32)
[2025-10-08] MEDS: Lidocaine 1% /Epi 1:100 (20ml) 20 ML Vial (08:32)
[2025-10-08] MEDS: fentaNYL 100 MCG/2 ML Ampul IV (08:33)
--- NOTE | 2025-10-08 08:57 | OP.PCM_ITS ---
Operative Report (Standard) Operative Information Date of Procedure: 10/08/25 Pre-Operative Diagnosis: Right and left face and neck cyst x 5 Post-Operative Diagnosis: Same Surgery/Procedure Performed: 1) excision right face cyst, 2 x 2 cm 2) intermediate closure right face wound 2 cm 3) excision right neck cyst x 2 removal 0.5 x 0.5 cm and 2 x 1 centimeter through same incision 4) intermediate closure right neck wound 3 cm 5) excision left face cyst, 1.5 x 1 cm 6) left face intermediate closure 2 cm 7) left neck cyst excision 3 x 2.5 cm 8) left neck intermediate closure 4 cm generator repairer: Yes Cardiac Monitor: Radha Tompkins Tasks completed by first line production supervisor: Closing and Retracting Type of Anesthesia: General/Supplemental (LMA and 10 cc of 50-50 mixture 1% lidocaine with 1-200,000 epinephrine and quarter percent Marcaine with 1-200,000 epinephrine) RN Documented Start/Stop Times: Operation Date: 10/08/25 08:00 Case Time Into Pre-Op 10/08/25 06:37 Out of Pre-Op 10/08/25 08:11 Anesthesia Start 10/08/25 08:14 Into Room 10/08/25 08:14 Procedure Start 10/08/25 08:32 Procedure Start Time: 08:14 Procedure Stop Time: 09:03 Select all DRAINS/GRAFTS/IMPLANTS that apply: None Estimated Blood Loss: 5 cc Specimen collected: Yes Description of specimen(s) removed: 5 different specimens, 1 from the right face, 2 from the right neck, 1 from the left face, 1 from the left Description of surgery: Indications: Stephen Ross is a delightful 45-year-old male with multiple neck and face cyst. Presents today for excision. I talked him about the risk benefits and alternatives to the procedure and he elected to proceed. Procedure details: Patient was marked in preoperative holding and the cyst were confirmed. He was taken back to the operating room where he was administered general anesthesia with an LMA and prepped and draped in sterile fashion. A timeout was performed. 15 blade scalpel was used to make incisions directly over the 4 locations where the 5 cyst were located. Careful dissection was taken down with tenotomy scissors in the subcutaneous plane. The cyst were all removed in 1 piece and se nt separately to pathology, except the right neck cyst which were from the same cavity were sent together. Hemostasis was obtained with Bovie electrocautery and the wounds were irrigated with copious amounts normal saline. The below are the noted sizes as well as the sizes of the intermediate closure (performed with 4-0 Monocryl deep dermal sutures followed by 4-0 Monocryl running subcuticular sutures and Steri-Strips) 1) excision right face cyst, 2 x 2 cm 2) intermediate closure right face wound 2 cm 3) excision right neck cyst x 2 removal 0.5 x 0.5 cm and 2 x 1 centimeter through same incision 4) intermediate closure right neck wound 3 cm 5) excision left face cyst, 1.5 x 1 cm 6) left face intermediate closure 2 cm 7) left neck cyst excision 3 x 2.5 cm 8) left neck intermediate closure 4 cm Patient tolerated the procedure well He was awakened and taken the PACU in stable condition Surgical Findings: All cysts are consistent with epidermal inclusion cysts Complications Complications: No
--- NOTE | 2025-10-08 09:17 | PCM.POST.ANE ---
Anesthesia: Postop Eval I Current Vital Signs Temperature: 97.5 F Pulse Rate: 73 Blood Pressure: 128/88 Respiratory Rate: 12 Pulse Ox: 100 Oxygen Delivery Method: Room Air Assessment Airway patent: Yes Spontaneous unlabored respirations: Yes Mental status: Awake and Calm nausea: No Vomiting: No Anesthesia Complication: No Fluid Hydration Crystalloid volume administer (ml): 600 Total IV fluid infused: 600 Progress Note Anesthesia document: Postop Eval 1 completed: Yes
--- NOTE | 2025-10-08 12:15 | POSTOPAN2_ITS ---
Anesthesia Postop Eval I Sum Postop Eval Completion status Anesthesia document: Postop Eval 1 completed: Yes Anesthesia Postop Eval I Summary Anesthesia Postop Eval I Summary: Anesthesia Postop Eval I: Assessment Summary Airway patent Yes 10/08/25 09:18 [email or web address] Spontaneous unlabored Yes 10/08/25 09:18 GRANULAR OPERATOR.SHOF respirations Mental status Awake,Calm 10/08/25 09:18 GRANULAR [email or web address] nausea No 10/08/25 09:18 GRANULAR OPERATOR.SHOF Vomiting No 10/08/25 09:18 GRANULAR OPERATOR.SHOF Anesthesia Postop Eval I: Fluid Summary Crystalloid volume administer 600 10/08/25 09:18 GRANULAR OPERATOR.SHOF (ml) Colloids volume administered ( ml) Blood Product volume administered (ml) Total IV fluid infused 600 10/08/25 09:18 GRANULAR OPERATOR.SHOF Anesthesia Postop Eval I: Summary Notes Anesthesia Complication No 10/08/25 09:18 GRANULAR OPERATOR.SHOF Anesthesia Complication Comment: Post-operative progress note Anesthesia: Postop Eval II Evaluation Mental status: Awake Pain Level: 1 nausea: No Vomiting: No
--- NOTE | 2025-10-08 12:15 | PCM.POSTANE2 ---
Anesthesia Postop Eval I Sum Postop Eval Completion status Anesthesia document: Postop Eval 1 completed: Yes Anesthesia Postop Eval I Summary Anesthesia Postop Eval I Summary: Anesthesia Postop Eval I: Assessment Summary Airway patent Yes 10/08/25 09:18 [place]ON MACHINE OPERATOR.[email or web address] Spontaneous unlabored Yes 10/08/25 09:18 TENON MACHINE OPERATOR.SHOF respirations Mental status Awake,Calm 10/08/25 09:18 TENON MACHINE OPERATOR.SHOF nausea No 10/08/25 09:18 TENON MACHINE OPERATOR.SHOF Vomiting No 10/08/25 09:18 TENON MACHINE OPERATOR.SHOF Anesthesia Postop Eval I: Fluid Summary Crystalloid volume administer 600 10/08/25 09:18 TENON MACHINE OPERATOR.SHOF (ml) Colloids volume administered ( ml) Blood Product volume administered (ml) Total IV fluid infused 600 10/08/25 09:18 TENON MACHINE OPERATOR.SHOF Anesthesia Postop Eval I: Summary Notes Anesthesia Complication No 10/08/25 09:18 TENON MACHINE OPERATOR.SHOF Anesthesia Complication Comment: Post-operative progress note Anesthesia: Postop Eval II Evaluation Mental status: Awake Pain Level: 1 nausea: No Vomiting: No
== END 2025-10-08 10:11 | disposition home or self-care (01) ==
LOC: SDC 06:29 → AC 06:31
PROVIDERS: Referring Provider Surgery Plastic and Reconstructive Surgery; Visit Provider Surgery Plastic and Reconstructive Surgery
PROC: (CPT 11442; principal; 2025-10-08 07:45)
DX: L72.0 Epidermal cyst (principal); F17.220 Nicotine dependence, chewing tobacco, uncomplicated
CPT/HCPCS: 11442 ×2; 11423 ×2; 12052; 12042; 00300; 88305; J2405